=== PATIENT | female | born 1995 | race Caucasian/White ===

== ENCOUNTER → 2019-10-11 | Outpatient (REF) | payer BC | LOC: M SFHCWAGY 17:48 | PROVIDERS: ATTEND Nurse Practitioner Women's Health | DX: Z12.4 Encounter for screening for malignant neoplasm of cervix (principal) ==

== ENCOUNTER → 2019-12-22 | Outpatient (REF) | payer BC ==
[2019-12-22 17:38] LABS: APPEARANCE, URINE HAZY (CLEAR); BACTERIA, URINE AUTO NEGATIVE (NEGATIVE); BILIRUBIN, URINE AUTO NEGATIVE (NEGATIVE); BLOOD, URINE BLOOD 1+ (NEGATIVE); COLOR, URINE YELLOW (YELLOW); GLUCOSE, URINE (UA) AUTO NEGATIVE (NEGATIVE); KETONE, URINE AUTO TRACE mg/dL (NEGATIVE); LEUKOCYTE ESTERASE, URINE AUTO 2+ (NEGATIVE); MUCUS, URINE SMALL (NEGATIVE); NITRITE, URINE AUTO NEGATIVE (NEGATIVE); PROTEIN, URINE AUTO NEGATIVE (NEGATIVE); RBC, URINE AUTO 8 /HPF (0-3); SQUAMOUS EPITHELIAL CELL UR AU 8 /HPF (0-6); UROBILINOGEN, URINE AUTO 0.2 mg/dL (0.0-2.0); WBC, URINE AUTO 17 /HPF (0-3)
[2019-12-22 19:45] LABS: CHLAMYDIA DNA AMPLIFICATION NEGATIVE (NEGATIVE); GC DNA AMPLIFICATION NEGATIVE (NEGATIVE)
== END ==
LOC: M LAB REF 16:58
PROVIDERS: ATTEND Physician Assistant Medical
DX: N39.0 Urinary tract infection, site not specified (principal)

== ENCOUNTER → 2019-12-23 | Outpatient (REF) | payer BC | LOC: M SFHCWAGY 09:48 | PROVIDERS: ATTEND Nurse Practitioner Women's Health | DX: N90.89 Other specified noninflammatory disorders of vulva and perineum (principal) ==

== ENCOUNTER → 2020-12-03 | Outpatient (CLI) | payer BC ==
--- NOTE | 2020-12-03 16:46 | REP ---
INDICATION: PAIN. COMPARISON: None. TECHNIQUE: Four views FINDINGS: There is a lucency seen in radial metaphysis which measures 5 mm. This has a mixed but mostly sclerotic transition zone. There is no acute fracture, dislocation, or subluxation. IMPRESSION: Distal radial bone lesion as described above. Etiology uncertain. Pre and post gadolinium enhanced MRI is recommended for complete evaluation. <Electronically signed by Haider Denton > 12/03/20 3912
== END ==
LOC: M WUC 15:54
PROVIDERS: ATTEND Physician Assistant
DX: M25.531 Pain in right wrist (principal)

== ENCOUNTER → 2022-10-27 | Outpatient (REF) | payer MEDICARE | LOC: M PLALAB 14:33 | PROVIDERS: ATTEND Advanced Practice Midwife | DX: Z12.4 Encounter for screening for malignant neoplasm of cervix (principal) ==

== ENCOUNTER 2023-04-08 20:12 | Emergency (ER) | payer MEDICARE ==
[~2023-04-08] VITALS: Ht 172.7 cm; Wt 77.3 kg
[2023-04-08 21:47] LABS: BASO % 0.5 % (0.0-1.0); EOS # 0.1 10^3/uL (0.0-0.5); EOS % 0.8 % (0.0-3.0); HEMATOCRIT 42.1 % (36.0-47.0); HEMOGLOBIN 14.1 g/dl (12.0-15.5); LYMPH # 1.5 10^3/uL (1.5-5.0); LYMPH % 18.9 % (24.0-44.0); MEAN CORPUSCULAR HEMOGLOBIN 31.6 pg (27.0-33.0); MEAN CORPUSCULAR HGB CONC 33.5 g/dl (32.0-36.5); MEAN CORPUSCULAR VOLUME 94.4 fl (80.0-96.0); MONO # 0.6 10^3/uL (0.0-0.8); MONO % 7.4 % (2.0-8.0); NEUTROPHILS # 5.6 10^3/uL (1.5-8.5); NEUTROPHILS % 72.1 % (36.0-66.0); PLATELET COUNT, AUTOMATED 219 10^3/uL (150-450); RED BLOOD COUNT 4.46 10^6/uL (4.00-5.40); WHITE BLOOD COUNT 7.7 10^3/uL (4.0-10.0)
[2023-04-08 22:05] LABS: ERYTHROCYTE SEDIMENTATION RATE 12 mm/hr (0-20)
[2023-04-08] MEDS ORDERED: AMPICILLIN SOD/SULBACTAM SOD 3 GM in D5W MINI-BAG PLUS 100 ML IV ONE (22:50)
[2023-04-08 23:07] LABS: HCG, SERUM QUALITATIVE NEGATIVE (NEGATIVE)
[2023-04-08] MEDS ORDERED: KETOROLAC 30 MG/ML 1ML VIAL IV ONE (23:20)
[2023-04-09 00:42] VITALS: BP 109/69; TEMP 98.9; O2SAT 96
== END 2023-04-09 00:50 | disposition home or self-care (01) ==
LOC: M ED 20:12
DX: S61.451A Open bite of right hand, initial encounter (principal); W54.0XXA Bitten by dog, initial encounter; D64.9 Anemia, unspecified; Z97.5 Presence of (intrauterine) contraceptive device
CPT/HCPCS: 73130; 84703; 85025; 85652; 86140; 96365; 96375; 99283; J0295; J1885

== ENCOUNTER → 2023-08-28 | Outpatient (REF) | payer MEDICARE ==
[2023-08-31 11:08] LABS: ANTI DS-DNA AB Negative (Negative); ANTI-CHROMATIN ANTIBODIES <0.2 AI (0.0-0.9); ANTINUCLEAR ANTIBODIES DIRECT Negative (Negative); RNP ANTIBODIES 0.2 AI (0.0-0.9); SJOGREN'S ANTI SS-A <0.2 AI (0.0-0.9); SJOGREN'S ANTI SS-B <0.2 AI (0.0-0.9); SMITH ANTIBODIES <0.2 AI (0.0-0.9)
== END ==
LOC: M LAB REF 16:26
PROVIDERS: ATTEND Internal Medicine
DX: L70.0 Acne vulgaris (principal); Z13.89 Encounter for screening for other disorder

== ENCOUNTER → 2023-09-29 | Outpatient (REF) ==
[2023-09-29 17:17] LABS: RSV AMPLIFICATION NEGATIVE (NEGATIVE)
== END ==
LOC: M EMP 15:42
PROVIDERS: ATTEND Family Medicine
DX: Z01.89 Encounter for other specified special examinations (principal)

== ENCOUNTER → 2024-06-28 | Outpatient (REF) | payer MEDICARE ==
[2024-07-01 13:33] LABS: RNP ANTIBODY <1.0 NEG AI (<1.0 NEG); SM ANTIBODY <1.0 NEG AI (<1.0 NEG); SSA SJOGRENS A <1.0 NEG AI (<1.0 NEG); SSB SJOGRENS B <1.0 NEG AI (<1.0 NEG)
[2024-07-04 16:43] LABS: ANTI DS-DNA AB NEGATIVE (NEGATIVE)
== END ==
LOC: M LAB REF 12:59
PROVIDERS: ATTEND Internal Medicine
DX: R10.9 Unspecified abdominal pain (principal); R63.5 Abnormal weight gain

== ENCOUNTER → 2025-03-05 | Outpatient (REF) | payer MEDICARE ==
[2025-03-05 12:02] LABS: HCG, SERUM QUALITATIVE NEGATIVE (NEGATIVE)
== END ==
LOC: M LAB REF 11:54
PROVIDERS: ATTEND Internal Medicine
DX: N91.2 Amenorrhea, unspecified (principal)

== ENCOUNTER → 2025-03-20 | Outpatient (REF) | payer MEDICARE ==
[2025-03-20 18:16] LABS: URINE PREG TEST POSITIVE (NEGATIVE)
[2025-03-20 18:19] LABS: HCG, SERUM QUANTITATIVE 504.6 MIU/ML (<4.2)
[2025-03-20 18:24] LABS: HCG, SERUM QUALITATIVE POSITIVE (NEGATIVE)
== END ==
LOC: M LAB REF 17:05
DX: Z32.00 Encounter for pregnancy test, result unknown (principal)

== ENCOUNTER → 2025-04-17 | Outpatient (REF) | LOC: M LAB 13:28 | PROVIDERS: ATTEND Family Medicine | DX: Z02.1 Encounter for pre-employment examination (principal) ==